=== PATIENT | female | born 1945 | race Caucasian/White ===

== ENCOUNTER 2024-02-17 09:23 | Emergency (ER) | payer OTHER, SELFPAY ==
[2024-02-17 10:04] VITALS: BP 146/72; PULSE 93; RESP 20; TEMP 37.2; O2SAT 97
--- NOTE | 2024-02-17 10:26 | PC.NURSE ---
attempted ua collection at [id number]
[2024-02-17 10:49] LABS: EDUAAPPEAR Cloudy; EDUABILI Negative (Negative); EDUABLOOD 2+ (Negative); EDUACOLOR1 Yellow; EDUAGLUCOSE Negative (Negative); EDUAKETONE 2+ (Negative); EDUALEUKO 1+ (Negative); EDUANITRATE Positive (Negative); EDUAPROTEIN 2+ (Negative); EDUASPGRAVITY 1.025
--- NOTE | 2024-02-17 10:56 | ED.FEMALEGU ---
HPI - Female Genitourinary General Chief complaint: Upper Respiratory Infection Stated complaint: diarrhea/congestion Time Seen by Provider: 02/17/24 10:25 Source: patient, family, RN notes reviewed and old records reviewed Mode of arrival: ambulatory Limitations: no limitations History of Present Illness HPI Narrative: 78 year old female who presents to [facility] care with complaints of having symptoms of UTI about 2 weeks ago which included burning with urination, low back pain and also suprapubic tenderness, states that she thinks she passed a stone. She states that she took AZO with last dose 4--5 days ago, drank cranberry juice and increased her water with symptoms seeming to resolve. She states that she had emesis yesterday x2 and she has some nausea with watery diarrhea today is able to drink fluids today.. Patient reports that she takes daily Claritin for her allergies and feels some congestion today with occasional dry cough. Patient reports that she has no CVA tenderness or suprapubic pain at this time, denies any fevers,chills or sweats. MD elicited complaint: UTI and other (some congestion and dry cough) Onset (ago): week(s) (inital symptoms 2 weeks ago which seemed to resolve. today nausea and diarrhea) Vaginal discharge: none Vaginal bleeding: none Related Data Home Medications Medication Instructions Recorded Confirmed Bladder Med. 02/17/24 lisinopril 5 mg tablet mg 02/17/24 loratadine 10 mg tablet mg 02/17/24 Allergies Allergy/AdvReac Type Severity Reaction Status Date / Time No Known Allergies Allergy Verified 02/17/24 09:58 Review of Systems Review of Systems: CONSTITUTIONAL: Denies fever, chills, or sweats. CARDIOVASCULAR: Denies chest pain, palpitations, trace pedal edema. RESPIRATORY: Reports dry cough no dyspnea. GASTROINTESTINAL: Denies abdominal pain,positive for nausea, vomiting X2 yesterday,, positive for diarrhea today GENITOURINARY: Reports no present dysuria,some frequency, urgency. Denies flank pain or hematuria.Symptoms of UTI 2 weeks ago with low back pain and suprapubic tenderness and dysuria took AZO and cranberry juice SKIN: Denies rash or itching . MUSCULOSKELETAL: Denies back pain or myalgia. Denies CVA tenderness NEUROLOGIC: Denies headache All systems reviewed & are unremarkable except as noted in HPI and below [facility] Past Medical History Medical History (Updated 02/18/24 @ 11:15 by Naty Pandey NP) Bladder leak Cancer of uterus Hypertension Open fracture of lower leg right lower leg plates and screws Seasonal allergies Surgical History Surgical History (Updated 02/18/24 @ 11:04 by Naty Pandey NP) History of radical hysterectomy chemotherapy Social History Social History (Updated 02/18/24 @ 11:06 by Naty Pandey NP) Smoking status: Never smoker Alcohol intake: never Substance use: never Gender identity (if verbalized by the patient): Female Comments At time of signature, agree with nursing past medical, surgical, social and family history. There is no relevant family history pertinent to the presenting complaint Exam Narrative: GENERAL: Well-appearing, well-nourished, and in no acute distress. HEAD: Normocephalic, atraumatic. NECK: Supple.no lymphadenopathy, TM's normal throat pink with no swelling or exudates, some sinus drainage CHEST: Clear to auscultation. No respiratory distress.dry cough SAO2 97% on room air HEART: Regular rate and rhythm. No murmur heard. Normal peripheral pulses.trace pedal edema ABDOMEN: Soft, nontender, nondistended, normal active bowel sounds. No CVA tenderness nausea and diarrhea today, emesis X2 yesterday EXTREMITIES: Normal range of motion. trace pedal edema. SKIN: Warm, dry, no rash. NEURO: No focal deficits. Alert and oriented x3. Course Course Emergency Course: Patient is aware of diagnosis, understands and agrees to treatment plan.? Anticipatory guidance given.? Patient agrees to
== END 2024-02-17 11:16 | disposition home or self-care (01) ==
PROVIDERS: Emergency Provider Registered Nurse; PCP Family Medicine
DX: M54.50 Low back pain, unspecified (principal); R11.2 Nausea with vomiting, unspecified; J32.9 Chronic sinusitis, unspecified; R19.7 Diarrhea, unspecified; I10 Essential (primary) hypertension; Z85.42 Personal history of malignant neoplasm of other parts of uterus; N39.0 Urinary tract infection, site not specified
CPT/HCPCS: 81003; 87077; 87086; 87186; 99213; G0463